=== PATIENT | male | born 1955 | race Caucasian/White ===

== ENCOUNTER 2018-08-17 06:55 | Day surgery (SDC) | payer BC ==
[2018-08-17] VITALS (19 sets, daily range): BP systolic 113–144; BP diastolic 65–85; PULSE 54–85; RESP 12–22; Ht 162.6 cm; Wt 70.5 kg
[~2018-08-17] VITALS: Ht 162.6 cm; Wt 70.5 kg
[~2018-08-17 06:55] MED LIST: AMIO200T4 PO; AMIT25TA9 PO; ASPI-817 PO; ATOR40TA68 PO; CLOP75TA27 PO; DIAZEPAM 5 MG TAB PO SCH; DIPHENHYDRAMINE 50 MG CAP PO SCH; FAMOTIDINE 20 MG TAB PO SCH; LISI-313 PO; METO-448 PO; NITR0.4T39 SL; SOD CHLORIDE 0.45% 1,000 ML IV SCH; TERA10CA3 PO
[2018-08-17] MEDS ORDERED: ISOS60TA PO (07:31)
[2018-08-17] MEDS ORDERED: AMIO200T4 PO (07:32)
[2018-08-17] MEDS ORDERED: ASPI81TA52 PO (07:32)
[2018-08-17] MEDS ORDERED: LISI2.5T59 PO (07:33)
[2018-08-17] MEDS ORDERED: FOLI-49 PO (07:33)
[2018-08-17] MEDS ORDERED: LEVO25TA50 PO (07:33)
[2018-08-17] MEDS ORDERED: CLOP75TA27 PO (07:33)
[2018-08-17] MEDS ORDERED: PROP10TA6 PO (07:34)
[2018-08-17] MEDS ORDERED: ATOR-2 PO (07:34)
[2018-08-17] MEDS ORDERED: MEMA5TAB PO (07:34)
[2018-08-17] MEDS ORDERED: METF500T24 PO (07:35)
[2018-08-17] MEDS ORDERED: FENTAnyl 50 MCG/ML VIAL ONE (08:55)
[2018-08-17] MEDS ORDERED: LIDOCAINE 1% (MDV) 20 ML INJ ONE (08:55)
[2018-08-17] MEDS ORDERED: IODIXANOL LOCM 100 ML BTL ONE (08:55)
[2018-08-17] MEDS ORDERED: MIDAZOLAM 1 MG/ML 2 ML INJ ONE (08:56)
[2018-08-17] MEDS ORDERED: SOD CHLORIDE 0.9% 500 ML ONE (08:57)
[2018-08-17] MEDS ORDERED: SOD CHLORIDE 0.9% 1,000 ML IV SCH (10:18)
--- NOTE | 2018-08-17 10:22 | SIPON ---
Date/Time of Note Date/Time of Note DATE: 08/17/18 TIME: 10:21 Operative Report Preoperative Diagnosis 1.Chest pain 2.abnl mpi Postoperative Diagnosis 1.obstructuve [place] vessel cad 2.Patent Graft to LAD and RCA to svg Operation/Procedure Performed 1.[facility] 2.Bypass graft angio Surgeon see signature line financial sales assistant 1.[place] Anesthesia: moderate sedation Estimated blood loss: minimal Transfusion Required none Specimen none Grafts/Implants none Complications none KOBY KING Aug 17, 2018 10:22
[2018-08-17] MEDS ORDERED: ACETAMINOPHEN 325 MG TAB PO PRN (10:30)
[2018-08-17] MEDS ORDERED: AL HYDROX/MG HYDROX/SIMETH 30 ML CUP PO PRN (10:30)
[2018-08-17] MEDS ORDERED: morphine 4 MG/ML VIAL IV PRN (10:30)
[2018-08-17] MEDS ORDERED: ONDANSETRON 4 MG INJ IV PRN (10:30)
--- NOTE | 2018-08-17 11:00 | NUR ---
NURSING RR RECEIVED PT FROM OR NOT IN ANY DISTRESS PT S/P LEFT HEART CATH .PT HAS LEFT GROIN SHEATH .NO HEMATOMA OR BLEEDING NOTED AT THIS TIME ..IV TO LEFT HAND G20 NEEDLE WITH NS INFUSING WELL .
--- NOTE | 2018-08-17 11:10 | NUR ---
NURSING RR RN FROM [facility] REMOVED LEFT GROIN SHEATH ,APPLIED PRESSURE FOR 22 MIN .NO HEMATOMA OR BLEEDING NOTED AT THIS TIME . PT INSTRUCTED NOT TO BEND LEFT LEG ,PT VERBALIZING UNDERSTANDING .
--- NOTE | 2018-08-17 12:10 | NUR ---
TRANSFER PT TRANSFER TO [facility] IN STABLE CONDITION ,NO HEMATOMA OR BLEEDING UPON TRANSFER .PT DAUGHTER MICHAEL MADE AWARE OF PATIONS CONDITION AND INSTRUCTED TO GO TO [facility] .
--- NOTE | 2018-08-17 16:19 | NUR ---
1320-LEFT GROIN DRESSING DRY & INTACT,NO BLEEDING OR HEMATOMA NOTED.PEDAL 3+ & STRONG.
--- NOTE | 2018-08-17 18:30 | NUR ---
1500-HOB UP 45 DEGREES & EATING A SANDWICH.NO C/O PAIN.LEFT GROIN NO BLEEDING OR HEMATOMA NOTED.
--- NOTE | 2018-08-17 18:33 | NUR ---
1630-AMBULATED TO RESTROOM.AMADEO. WELL.STAES FEELS TIRED & DIZZY WHEN HE GOT UP.LEFT GROIN NO BLEEDING OR HEMATOMA NOTED.
--- NOTE | 2018-08-19 11:02 | CARRPT ---
DATE OF PROCEDURE: 08/17/2018 TYPE OF PROCEDURE: 1. Left heart catheterization. 2. Coronary angiography. 3. Bypass graft angiography including YOU arterial graft. 4. Measurement of left ventricular end diastolic pressure. 5. Aortic root angiography. 6. Moderate conscious sedation. 7. Femoral angiography. ATTENDING PHYSICIAN: Koby Gold MD REFERRING PHYSICIAN: Dr. Arben Pitt. INDICATION: Chest pain with a positive stress test for ischemia and abnormal CTA. TYPE OF ANESTHESIA: Conscious and local. BRIEF HISTORY: Mr. Talbert is a 62-year-old male with history of hypertension, dyslipidemia, co ronary artery disease, status post PMI with emergent coronary artery bypass graft surgery x2 in 2011, prior PTCA and stent placement, who presented with complaints of substernal chest pain, placed on co ntinued medical therapy, continued to have chest pain and subsequently underwent cardiac stress testi ng for positive ischemia and a CTA revealing possible abnormalities of the grafts. Given these findi ngs, the patient referred for and presents today in order to undergo left heart catheterization to as sess for the possibility of recurrent significant obstructive coronary artery disease and symptoms of chest pain and subsequent positive stress test findings. PROCEDURE: After informed consent was obtained, the patient presented to [facility] cardiac catheterization lab where his right femoral area was prepped and draped in sterile fashion, 2% lidocaine was used in order to achieve adequate anesthesia. Using modified Seldinger techn ique, the right femoral artery was cannulated, and we attempted to pass a wire unsuccessfully. Subse quently, before placing the sheath, the needle was used to inject contrast, showing that the patient' s external iliac on this side was occluded just as it came to the aortic bifurcation. Subsequently, the needle was removed, moderate pressure held in the right side and we exchanged to the left femoral artery and using the modified Seldinger technique, the left femoral artery was cannulated and a 6-Fr ench arterial sheath was placed. A 6-Bulgarian JL4 catheter was used to cannulate the left main coronar y ostium. With contrast injection, multiple views of left coronary arterial system were obtained. J L4 was removed over a guidewire and a JR4 was used to cannulate the right coronary arterial ostium wi th contrast injection. Right coronary arterial system obtained. JR4 was then used to cannulate the SFA graft supplying the right coronary artery and the YOU supplying the LAD after which contrast inj ection, multiple views of the grafts were adequately assessed. The catheter was then used to perform angiography upon the subclavian revealing no stenoses and it was removed. Subsequently, at this juany e, the pigtail catheter was then introduced and placed into the LV. LVEDP was measured, pulled back across the aortic valve to assess for significant gradient, which there was not and remained in the r oot. At this time, aortic root angiography was undertaken with the use of power injector and 40 mL c ontrast, identifying no further grafts and then was seen. Subsequently, the pigtail catheter w as removed. The patient underwent femoral angiography revealing the sheath to be placed through the profunda femoral artery. Subsequently, the sheath was removed with pressure held. This comple bahman the procedure. There were no noted complications. FINDINGS: Left main 4 mm, no significant stenoses. Circumflex proximally is a 2.5 mm vessel and cir c continuation and AV groove is free from focal stenoses with a high branching obtuse marginal, sub 2 mm vessel, covers a reasonable distance with no significant focal stenosis. There exists a ramus br anch 2 mm with ostial 40-50% stenosis. The LAD proximally is a 3 mm vessel and becomes a much smalle r caliber vessel toward the distal end with a probable high-grade occlusion and then you can see comp etitive flow consistent with a patent YOU graft. There is a diagonal sub 2 mm vessel with no signif icant focal stenoses. The right coronary artery has a stent in its proximal portion, with flush occl uded at its ostium. The saphenous vein graft supplying the right coronary artery is a widely patent graft with no intervening stenoses and supplies reasonably sized distal PDA and gets retrograde flow that fills the posterolateral branch as well. Bypass graft angiography revealed a widely patent YOU to LAD with somewhat atretic-appearing graft _ ____ stenoses and no subclavian stenoses. Aortic root angiography revealed the patient's [place] left and right coronary arteries. A saphenous vein graft to right coronary artery and the YOU arterial graft to left anterior descending and other grafts were identified. Femoral angiography showed the patient's sheath to be placed right in the profunda femoral artery wit h no significant stenoses in the right common femoral or distal external iliac. The patient's femora l angiography on the right side revealed the patient to have a 100% occlusion of the external iliac i n its mid portion with collateral flow that appears to be supplying the distal leg. TOTAL FLUOROSCOPY TIME: Total fluoro time 6.5 minutes. TOTAL CONTRAST: 100 mL. IMPRESSION: 1. Obstructive [place] vessel coronary artery disease involving flush occlusion of the patient's righ t coronary artery and a possible high grade stenosis in the mid left anterior descending. 2. Patent YOU to LAD graft, somewhat atretic but widely patent. 3. Widely patent saphenous vein graft to right coronary artery, no intervening stenosis. 4. Mildly elevated left heart filling pressures 19 to 20. 5. No significant aortic stenosis by gradient. RECOMMENDATIONS: In light of procedure findings at this time: 1. Maximize medical management. 2. Aggressive risk factor reduction. 3. The patient will be readmitted to the for post-cath observation and continued management of symptoms with probable discharge later this afternoon. Dictated By: KOBY ARNOLD/PILAR Conf#: [id number] DID#: [id number] CC: SEE PITT MD;*EndCC*
== END 2018-08-17 16:58 | disposition home or self-care (01) ==
LOC: SDS 06:55
PROVIDERS: ATTEND Internal Medicine
DX: I25.10 Atherosclerotic heart disease of native coronary artery without angina pectoris (principal); I10 Essential (primary) hypertension; E78.5 Hyperlipidemia, unspecified
CPT/HCPCS: 71045; 80048; 80061; 82962; 85025; 85610; 85730; 93005; 93459; C1887; C1894; J1644; J2250; J3010; J7040; Q9967; Z7610